=== PATIENT | female | born 1980 | race Caucasian/White ===

== ENCOUNTER → 2019-12-08 16:15 | Outpatient (BNVA) | payer OTHER, SELFPAY | PROVIDERS: Family Provider Family Medicine; PCP Family Medicine; Visit Provider Obstetrics & Gynecology | DX: N92.0 Excessive and frequent menstruation with regular cycle (principal) | CPT/HCPCS: 84443; 85027 ==

== ENCOUNTER → 2019-12-24 09:29 | Outpatient (BNVA) | payer OTHER, SELFPAY | PROVIDERS: Family Provider Family Medicine; PCP Family Medicine; Referring Provider Obstetrics & Gynecology; Visit Provider Obstetrics & Gynecology | DX: N92.0 Excessive and frequent menstruation with regular cycle (principal) | CPT/HCPCS: 76830; 76856 ==

== ENCOUNTER → 2020-01-19 10:57 | Outpatient (BNVA) | payer OTHER, SELFPAY | PROVIDERS: Family Provider Family Medicine; PCP Family Medicine; Referring Provider Nurse Practitioner; Visit Provider Podiatrist Foot & Ankle Surgery | DX: M21.41 Flat foot [pes planus] (acquired), right foot (principal); M21.42 Flat foot [pes planus] (acquired), left foot; M77.32 Calcaneal spur, left foot; M77.31 Calcaneal spur, right foot; M20.12 Hallux valgus (acquired), left foot; M20.11 Hallux valgus (acquired), right foot | CPT/HCPCS: 73630 ==

== ENCOUNTER → 2020-01-29 10:35 | Outpatient (BNVA) | payer OTHER, SELFPAY | PROVIDERS: Family Provider Family Medicine; PCP Family Medicine; Visit Provider Obstetrics & Gynecology | DX: N92.0 Excessive and frequent menstruation with regular cycle (principal) | CPT/HCPCS: 88305 ==

== ENCOUNTER 2021-04-20 13:07 | Outpatient (CLI) | payer OTHER, SELFPAY ==
--- NOTE | 2021-04-20 13:27 | MM_ITS ---
WS: [id number] BILATERAL DIGITAL SCREENING MAMMOGRAPHY WITH CAD CLINICAL INFORMATION: SCREENING HISTORY: Screening mammogram. No current complaints. COMPARISON: None. TECHNIQUE: Bilateral CC and MLO views. FINDINGS: Scattered fibroglandular densities bilaterally. Partially obscured ovoid focal asymmetric density lef t breast measuring 7 mm outer quadrant left breast middle to posterior depth. This may represent an i ntramammary lymph node but indeterminant. Recommend spot compression views and ultrasound for further evaluation. Right breast is unremarkable. MM/[place] [id number] IMPRESSION: BI-RADS: 0-Incomplete: Need additional imaging evaluation FOLLOW UP: Need Additional Imaging RECOMMEND DIAGNOSTIC MAMMOGRAPHY WITH SPOT COMPRESSION VIEWS AND ULTRASOUND LEF T BREAST.
== END 2021-04-20 13:08 | disposition home or self-care (01) ==
LOC: RADSHAW 13:10
PROVIDERS: PCP Electrodiagnostic Medicine; Visit Provider Electrodiagnostic Medicine
DX: Z12.31 Encounter for screening mammogram for malignant neoplasm of breast (principal)
CPT/HCPCS: 77067

== ENCOUNTER 2021-05-02 12:38 | Outpatient (CLI) | payer OTHER, SELFPAY ==
--- NOTE | 2021-05-02 13:16 | US_ITS ---
WS: [id number] LEFT DIGITAL MAMMOGRAPHY WITH CAD CLINICAL INFORMATION: LT BREAST MASS TECHNIQUE: 5 views of the left breast were obtained. FINDINGS: Scattered fibroglandular densities of the left breast. Partially obscured ovoid focal asymmetric density left breast measuring 7 mm outer quadrant left [address] middle to posterior depth is less conspicuous today. This most likely represents an incidental int ramammary lymph node. Ultrasound is pending. ULTRASOUND BREAST LEFT TECHNIQUE: Ultrasound left breast focused area of concern. CLINICAL INFORMATION: LT BREAST MASS COMPARISON: None. FINDINGS: Ultrasound left breast 12-5 position. No cystic or solid lesions. Normal underlying breast parenchyma. No suspicious findings. Recommend re turn to annual screening mammography. US/US breast LT limited* [id number] IMPRESSION: BI-RADS: 2-Benign FOLLOW UP: 1 Year Follow-up Recommend return to annual screening mammography.
== END 2021-05-02 12:39 | disposition home or self-care (01) ==
LOC: RADSHAW 12:40
PROVIDERS: PCP Electrodiagnostic Medicine; Visit Provider Electrodiagnostic Medicine
DX: N63.20 Unspecified lump in the left breast, unspecified quadrant (principal)
CPT/HCPCS: 76642; 77065

== ENCOUNTER → 2022-02-24 13:47 | Outpatient (BNVA) | payer OTHER, SELFPAY | PROVIDERS: PCP Electrodiagnostic Medicine; Visit Provider Nurse Practitioner Women's Health | DX: Z01.419 Encounter for gynecological examination (general) (routine) without abnormal findings (principal); N84.1 Polyp of cervix uteri; N93.9 Abnormal uterine and vaginal bleeding, unspecified; D25.9 Leiomyoma of uterus, unspecified | CPT/HCPCS: 87624; 88305 ==

== ENCOUNTER 2022-06-22 12:51 | Outpatient (CLI) | payer OTHER, SELFPAY ==
--- NOTE | 2022-06-22 13:01 | MM_ITS ---
WS: [id number] BILATERAL 3D TOMOSYNTHESIS DIGITAL SCREENING MAMMOGRAPHY WITH CAD CLINICAL INFORMATION: SCREENING HISTORY: Screening mammogram. No current complaints. COMPARISON: TECHNIQUE: Bilateral CC and MLO views. FINDINGS: Scattered fibroglandular densities bilaterally. No suspicious focal mass, asymmetry, calcifications, or architectural distortion. No evidence of malignancy. MM/[place] [id number] IMPRESSION: BI-RADS: 1-Negative FOLLOW UP: 1 Year Follow-up Recommend return to annual screening mammography.
== END 2022-06-22 12:52 | disposition home or self-care (01) ==
LOC: RAD 12:53
PROVIDERS: PCP Electrodiagnostic Medicine; Visit Provider Nurse Practitioner Women's Health
DX: Z12.31 Encounter for screening mammogram for malignant neoplasm of breast (principal)
CPT/HCPCS: 77063; 77067

== ENCOUNTER → 2022-11-27 10:30 | Outpatient (BNVA) | payer OTHER, SELFPAY | PROVIDERS: PCP Electrodiagnostic Medicine; Visit Provider Nurse Practitioner Women's Health | DX: N93.9 Abnormal uterine and vaginal bleeding, unspecified (principal) | CPT/HCPCS: 76830 ==

== ENCOUNTER → 2023-01-19 10:30 | Outpatient (BNVA) | payer OTHER, SELFPAY | PROVIDERS: PCP Electrodiagnostic Medicine; Visit Provider Obstetrics & Gynecology | DX: D25.9 Leiomyoma of uterus, unspecified (principal); N93.9 Abnormal uterine and vaginal bleeding, unspecified | CPT/HCPCS: 83001; 84443; 84702; 85025 ==

== ENCOUNTER 2023-02-21 07:26 | Day surgery (SDC) | payer OTHER, SELFPAY ==
[2023-02-19 11:32] VITALS: BMI 59.1
[2023-02-19 12:21] LABS: Add Urine Microscopic? NO; Charge for UA Resulting for Rev
[2023-02-19 12:24] LABS: Basophils % 0.6 %; Eosinophils # 0.1 10^3/uL (0.0-0.8); Eosinophils % 1.9 %; Hematocrit 40.6 % (37.0-47.0); Hemoglobin 12.9 g/dL (11.5-15.3); Lymphocytes % 28.5 %; Mean Corpuscular HGB Conc 31.8 g/dL (30.0-36.0); Mean Corpuscular Volume 85.1 fl (81-99); Mean Platelet Volume 10.6 fL (7.4-10.4); Monocytes # 0.4 10^3/uL (0.2-0.9); Monocytes % 5.9 %; Neutrophils # 4.38 10^3/uL (1.8-7.7); Neutrophils % 62.7 %; Nucleated Red Blood Cells % 0 %; Platelet Count 299 10^3/cmm (130-400); Red Blood Count 4.77 10^6/uL (4.1-5.3); Red Cell Distribution Width 15.5 % (12.1-15.1)
[2023-02-19 12:40] LABS: Alanine Aminotransferase 15 U/L (0-33); Albumin Level 3.7 g/dL (3.5-5.2); Alkaline Phosphatase 82 U/L (35-105); Anion Gap 11.8 (5-19); Aspartate Amino Transferase 16 U/L (0-32); Blood Urea Nitrogen 9 mg/dL (6-20); Calcium 8.3 mg/dL (8.5-10.5); Carbon Dioxide 25 mmol/L (22-29); Chloride 104 mmol/L (98-107); Globulin 3.1 g/dL (1.3-4.6); Glomerular Filtration Rate 174.2 mL/min (90-130); Glucose 108 mg/dL (65-115); Osmolality Calculated 283 mOsm/kg (285-295); Potassium 3.8 mmol/L (3.5-5.1); Sodium 137 mmol/L (136-145); Total Bilirubin 0.3 mg/dL (0.15-1.2); Total Protein 6.8 g/dL (6.6-8.7)
[2023-02-19 12:43] LABS: Bilirubin Urine Neg (Negative); Blood Urine Neg (Negative); Glucose Urine UA Norm (Normal); Ketones Urine Negative (Negative); Leukocyte Esterase Urine Negative (Negative); Nitrate Urine Negative (Negative); Protein Urine Neg (Negative); Specific Gravity, Urine 1.015 (1.005-1.030); Sulfosalicylic Acid Urine Negative (Negative); Urine Appearance Clear (CLEAR); Urine Color Yellow (Yellow); Urobilinogen Urine 1 mg/dL (Negative); pH Urine 8 (5-7)
--- NOTE | 2023-02-19 15:32 | P.ANESASSM_ITS ---
Pre-Anesthetic Assessment Height/Weight: Height 1.73 m Weight 176.447 kg Operation Date: 02/21/23 07:10 Proposed Procedures p Hysteroscopy, dilation and curettage with Myosure 48804,[id number],N93.9(Not Applicable) - Severiano Bhakta MD s Dilation And Curettage (D&C)(Not Applicable) - Severiano Bhakta MD Familial anesthetic complications: none Was Beta Neal taken within 24 hours: N/A Was Clonidine taken within 24 hours: N/A Social No alcohol and No tobacco Exam alert, oriented x 3, clear to auscultation bilaterally and regular rate & rhythm Airway Submandibular: within normal limits Cervical ROM: within normal limits Mallampati: Class II Dentition: full Metabolic Morbid Obesity Anesthetic Plan ASA status: 2 Anesthesia: General Medications/Allergies Home Medications Medication Instructions Recorded Confirmed Last Taken Type No Known Home Medications 02/24/22 02/19/23 Unknown History Allergies Allergy/AdvReac Type Severity Reaction Status Date / Time No Known Allergies Allergy Verified 02/19/23 09:07 [facility] Anesthesia Medical History Abnormal uterine bleeding due to leiomyoma of uterus Morbid obesity No pertinent past medical history neghx: htn,dm,thyroid,dvt/pe PCP: Dr. Olvera Plantar fasciitis of left foot Stress incontinence (female) (male) Surgical History No history of previous surgery Family History Father Hypercholesteremia Hypertension Grandmother Colon cancer Maternal---dx age 74 Denies family history of Ovarian cancer Diabetes Heart disease Breast cancer Uterine cancer Thyroid disease Stroke Female Reproductive History Date of last menstrual period: 02/05/23 Data Anesthesia 02/19/23 12:00 02/19/23 12:00 Short CBC 02/19/23 Range/Units 12:00 WBC 7.0 (4.0-10.0) 10^3/uL Hgb 12.9 (11.5-15.3) g/dL Hct 40.6 (37.0-47.0) % MCV 85.1 (81-99) fl Plt Count 299 (130-400) 10^3/cmm Neut % (Auto) 62.7 % Neut # (Auto) 4.38 (1.8-7.7) 10^3/uL BMP 02/19/23 12:00 Sodium 137 Potassium 3.8 Chloride 104 Carbon Dioxide 25 BUN 9 Creatinine 0.4 L Glucose 108 Calcium 8.3 L Liver Function 02/19/23 Range/Units 12:00 Total Bilirubin 0.3 (0.15-1.2) mg/dL AST 16 (0-32) U/L ALT 15 (0-33) U/L Alkaline Phosphatase 82 (35-105) U/L Albumin 3.7 (3.5-5.2) g/dL Urine 02/19/23 Range/Units 12:10 Urine Color Yellow (Yellow) Urine Appearance Clear (CLEAR) Urine pH 8 H (5-7) Ur Specific Needles 1.015 (1.005-1.030) Urine Protein Neg (Negative) Urine Glucose (UA) Norm (Normal) Urine Ketones Negative (Negative) Urine Nitrate Negative (Negative) Urine Bilirubin Neg (Negative) Ur Leukocyte Esterase Negative (Negative) Blood Bank 02/19/23 12:00 Blood Type O Positive Rho(D) Type Positive Antibody Screen Negative Cardiac Studies: No Data to Display
[2023-02-19 21:00] LABS: OR HCG Qualitative Urine Negative (Negative)
[2023-02-21] VITALS (10 sets, daily range): BP systolic 91–151; BP diastolic 69–114; PULSE 83–102; RESP 16–18; TEMP 36.2–36.7; O2SAT 95–100
[2023-02-21] MEDS: sodium chloride 0.9% 1,000 ML 30 ML IV (07:51)
--- NOTE | 2023-02-21 08:41 | P.ANESUD_ITS ---
Pre-Anesthetic Update Pre-Anesthetic Assessment: Date of Surgery/Procedure: 02/21/23 Preop [place] gnosis: Abnormal uterine bleeding, cervical polyp Proposed Procedure: Operation Date: 02/21/23 09:05 Proposed Procedures p Hysteroscopy, dilation and curettage with Myosure 79449,70365,45141,N93.9(Not Applicable) - Severiano Bhakta MD s Dilation And Curettage (D&C)(Not Applicable) - Severiano Bhakta MD Any changes to Pre-Anesthetic Assessment?: No Last Intake: Intake Last Liquid Date 02/20/23 Last Liquid Time 19:30 Last Solid Date 02/20/23 Last Solid Time 19:30 Labs Last 48hrs: Short CBC 02/19/23 Range/Units 12:00 WBC 7.0 (4.0-10.0) 10^3/ uL Hgb 12.9 (11.5-15.3) g/dL Hct 40.6 (37.0-47.0) % MCV 85.1 (81-99) fl Plt Count 299 (130-400) 10^3/c mm Neut % (Auto) 62.7 % Neut # (Auto) 4.38 (1.8-7.7) 10^3/u L BMP 02/19/23 12:00 Sodium 137 Potassium 3.8 Chloride 104 Carbon Dioxide 25 BUN 9 Creatinine 0.4 L Glucose 108 Calcium 8.3 L Liver Function 02/19/23 Range/Units 12:00 Total Bilirubin 0.3 (0.15-1.2) mg/dL AST 16 (0-32) U/L ALT 15 (0-33) U/L Alkaline Phosphata se 82 (35-105) U/L Albumin 3.7 (3.5-5.2) g/dL Urine 02/19/23 Range/Units 12:10 Urine Color Yellow (Yellow) Urine Appearance Clear (CLEAR) Urine pH 8 H (5-7) Ur Specific Gravit y 1.015 (1.005-1.030) Urine Protein Neg (Negative) Urine Glucose (UA) Norm (Normal) Urine Ketones Negative (Negative) Urine Nitrate Negative (Negative) Urine Bilirubin Neg (Negative) Ur Leukocyte Chloe ase Negative (Negative) Blood Bank 02/19/23 12:00 Blood Type O Positive Rho(D) Type Positive Antibody Screen Negative Vitals: Temperature 97.1 F L 02/21/23 07:37 Temperature Source Temporal Artery S can 02/21/23 07:37 Pulse Rate 99 02/21/23 07:37 Respiratory Rate 18 02/21/23 07:37 Blood Pressure 151/114 02/21/23 07:37 Blood Pressure Marizol n 126 02/21/23 07:37 Pulse Oximetry 100 02/21/23 07:37 Oxygen Delivery Me thod Room Air 02/21/23 07:46 Exam: Pre-Anes Outpt Exam: alert, oriented x 3, clear to auscultation bilaterally and regular rate & rhythm Cardiac Studies: No Data to Display
[2023-02-21] MEDS: scopolamine 1.5 Patch 1 PATCH TRANSDERMA (08:44)
[2023-02-21] MEDS: enoxaparin 30 mg/0.3 mL Syringe SUBCUT (08:44)
--- NOTE | 2023-02-21 09:43 | W.PM.OPSUD ---
Surgery/Procedure H&P Update DATE OF PROCEDURE: February 21, 2023 DATE H&P PERFORMED: 02/19/23 H&P UPDATE INFORMATION: I have reviewed H&P completed within last 30 days, I have examined patient prior to procedure and No changes to prior documentation PREOP DIAGNOSIS: Abnormal uterine bleeding, cervical polyp PLANNED PROCEDURE: Operation Date: 02/21/23 09:05 Proposed Procedures p Hysteroscopy, dilation and curettage with Myosure 95748,[id number],N93.9(Not Applicable) - Severiano Bhakta MD s Dilation And Curettage (D&C)(Not Applicable) - Severiano Bhakta MD
[2023-02-21] MEDS: ceFAZolin 3,000 MG in sodium chloride 0.9% (100 ml) 100 ML 200 MG IV (10:13)
[2023-02-21] MEDS: lidocaine-epi 2% 20 mL INJ 10 ML INJECTION (11:04)
--- NOTE | 2023-02-21 11:16 | P.OP_ITS ---
Operative Report Date of procedure: February 21, 2023 Pre-op diagnosis: Preop Diagnosis Abnormal uterine bleeding, cervical polyp Post-op diagnosis: Same as above Post-op findings: Multiple polyps in uterus Specimens removed/disposition: Endometrial curettings Pathology: Endometrial polyps Surgeon: Severiano Bhakta MD Estimated blood loss (mL): 10 IV fluids (mL): 800 Procedure: After informed consent, the risks included but were not limited to bleeding, infection, injury to internal organs. The patient was counseled on a possible laparotomy and on the potential need for hysterectomy. The patient expressed understanding of the risks involved, all questions were answered, and the patient consented to the procedure. The patient was taken to the operating room where general anesthesia was administered. She was placed in the dorsal litho jenn position and prepped and draped in sterile fashion. A time out procedure was performed. The patient was examined under anesthesia and found to have a normal uterus with normal adnexa. A sterile weight speculum was placed in the vagina. The uterus was then gently sounded to 8 cm, and the cervix was dilated. The 0 degrees MyoSure hysteroscope was advanced gently to the uterine fundus while vi sualizing the monitor. Survey of the uterine cavity showed: Pedicle of the pedunculated myoma on the posterior lateral wall, the fundus shows normal proliferative endometrium; left ostium was visualized, and lateral wall with proliferative endometrium; right ostium visualized, and lateral wall with proliferative endometrium; anterior and posterior lawson are with proliferative endometrium; endocervical canal is normal. The MyoSure device was advanced and the direct visualization the myoma stalk, polyps was morcellated without complication. At the end of morcellation the fluid deficit was 420 mL and was estimated at approximately 200 mL were on the floor. There was minimal bleeding noted and the tenaculum removed with goad hemostasis noted. The patient tolerated the procedure well. The patient was taken to the recovery area in stable condition.
--- NOTE | 2023-02-21 12:38 | ANE.PACU2 ---
Inpatient post-anesthesia follow up: Airway intact: Yes Vital signs: Temperature 98.1 F Pulse Rate 87 Respiratory Rate 18 Blood Pressure 145/83 Pulse Oximetry 95 Oxygen Delivery Me thod Room Air Oxygen Flow Rate 6 Fraction of Inspir ed Oxygen Hydration adequate: Yes Nausea and vomiting: No Pain level: 3 Mental status: Baseline
== END 2023-02-21 12:33 | disposition home or self-care (01) ==
PROVIDERS: PCP Electrodiagnostic Medicine; Visit Provider Obstetrics & Gynecology
PROC: 0UDB8ZZ Extraction of Endometrium, Via Natural or Artificial Opening Endoscopic (ICD-10-PCS; CPT 58558; principal; 2023-02-21 08:55)
PROC: (CPT 58120; 2023-02-21 08:55)
DX: N93.9 Abnormal uterine and vaginal bleeding, unspecified (principal); N84.1 Polyp of cervix uteri; E66.01 Morbid (severe) obesity due to excess calories; Z68.43 Body mass index [BMI] 50.0-59.9, adult
CPT/HCPCS: 58558; 36415; 80053; 81003; 84703; 85025; 86850; 86900; 88305; A4216; J0330; J0690; J1100; J1650; J1885; J2405; J2704; J3010; J7030

== ENCOUNTER 2023-06-28 15:13 | Outpatient (CLI) | payer OTHER, SELFPAY ==
--- NOTE | 2023-06-28 15:20 | MM_ITS ---
WS: [id number] BILATERAL SCREENING DIGITAL TOMOSYNTHESIS MAMMOGRAM WITH CAD HISTORY: Z12.39 - Encounter for other screening for malignant neop... COMPARISON: 06/22/2022, 04/20/2021 Bilateral CC and MLO views with tomosynthesis and synthetic mammography submitted. Computer aided det ection analyzed. Breast composition: There are scattered areas of fibroglandular density. No suspicious masses, microc alcifications or architectural distortion. Previously described nodule in the posterior LEFT breast i s reidentified and unchanged since at least 2020. IMPRESSION: MM/[place] [id number] BI-RADS: 2-Benign FOLLOW UP: 1 Year Follow-up
== END 2023-06-28 15:14 | disposition home or self-care (01) ==
LOC: RAD 15:17 → MOBLMAM 15:19
PROVIDERS: PCP Electrodiagnostic Medicine; Visit Provider Electrodiagnostic Medicine
DX: Z12.31 Encounter for screening mammogram for malignant neoplasm of breast (principal)
CPT/HCPCS: 77063; 77067

== ENCOUNTER 2024-01-22 13:00 | Inpatient (IN) | payer OTHER, SELFPAY ==
[2024-01-21 08:14] LABS: OR HCG Qualitative Urine Negative (Negative)
--- NOTE | 2024-01-21 08:26 | ANES.PREANE2 ---
Pre-Anesthetic Assessment Height/Weight: Height 1.73 m Operation Date: 01/22/24 08:35 Proposed Procedures p Total vaginal hysterectomy 30263, Anterior colporrhaphy 04430, Midurethral sling 15743 N93.9, N81.10,N39.46(Not Applicable) - Severiano Bhakta MD s Colporrhaphy Anterior(Not Applicable) - Severiano Bhakta MD s Sling Single Incision Midurethral Sling(Not Applicable) - Severiano Bhakta MD Familial anesthetic complications: NOne Social No alcohol and No tobacco Exam alert, oriented x 3, clear to auscultation bilaterally and regular rate & rhythm Airway Mallampati: Class IV Dentition: full Metabolic Morbid Obesity Anesthetic Plan ASA status: 2 Anesthesia: General Risk of > 500 ml blood loss (7ml/kg in children): No Medications/Allergies Home Medications Medication Instructions Recorded Confirmed Last Taken Type oxybutynin chloride 5 mg 5 mg PO DAILY #30 tabs 10/05/23 01/21/24 12/31/23 Rx tablet,extended release 24 hr norgestimate 0.25 mg-ethinyl 1 tab PO DAILY #84 tabs 11/29/23 01/21/24 01/21/24 Rx estradiol 35 mcg tablet (Sprintec (28)) cetirizine 10 mg capsule (Zyrtec) 10 mg PO DAILY 01/21/24 01/21/24 01/21/24 History sennosides 8.6 mg tablet (senna) 8.6 mg PO DAILY 01/21/24 01/21/24 01/21/24 History Allergies Allergy/AdvReac Type Severity Reaction Status Date / Time No Known Allergies Allergy Verified 10/05/23 08:19 [facility] Anesthesia Medical History Cervical polyp Abnormal uterine bleeding due to leiomyoma of uterus No pertinent past medical history neghx: htn,dm,thyroid,dvt/pe PCP: Dr. Olvera Plantar fasciitis of left foot Morbid obesity Stress incontinence (female) (male) Surgical History Status post hysteroscopic polypectomy (~02/21/23) Hysteroscopy, D&C via MyoSure- performed at [facility] by Yony for AUB secondary to uterine polyps. Family History Father Hypercholesteremia Hypertension Grandmother Colon cancer Maternal---dx age 74 Denies family history of Ovarian cancer Diabetes Heart disease Breast cancer Uterine cancer Thyroid disease Stroke Social History Substance/Drug Use: never Female Reproductive History Date of last menstrual period: 12/24/23 Data Anesthesia Cardiac Studies: No Data to Display
--- NOTE | 2024-01-21 08:31 | ANES.PREANE2 ---
Pre-Anesthetic Assessment Height/Weight: Height 1.73 m Operation Date: 01/22/24 08:35 Proposed Procedures p Total vaginal hysterectomy 94937, Anterior colporrhaphy 99731, Midurethral sling 12663 N93.9, N81.10,N39.46(Not Applicable) - Severiano Bhakta MD s Colporrhaphy Anterior(Not Applicable) - Severiano Bhakta MD s Sling Single Incision Midurethral Sling(Not Applicable) - Severiano Bhakta MD Familial anesthetic complications: None Was Beta Neal taken within 24 hours: N/A Was Clonidine taken within 24 hours: N/A Last intake: > 8hrs Social Alcohol and Tobacco (encouraged smoking cessation) Exam alert, oriented x 3, clear to auscultation bilaterally and regular rate & rhythm Airway Mallampati: Class III Dentition: other (missing molar) Pulmonary allergies Anesthetic Plan ASA status: 1 Anesthesia: General Risk of > 500 ml blood loss (7ml/kg in children): No Other Pertinent Information Covid + on 01/03 - patient states her covid infection wasn't severe and she is back to her baseline health with no remaining symptoms Medications/Allergies Home Medications Medication Instructions Recorded Confirmed Last Taken Type oxybutynin chloride 5 mg 5 mg PO DAILY #30 tabs 10/05/23 01/21/24 12/31/23 Rx tablet,extended release 24 hr norgestimate 0.25 mg-ethinyl 1 tab PO DAILY #84 tabs 11/29/23 01/21/24 01/21/24 Rx estradiol 35 mcg tablet (Sprintec (28)) cetirizine 10 mg capsule (Zyrtec) 10 mg PO DAILY 01/21/24 01/21/24 01/21/24 History sennosides 8.6 mg tablet (senna) 8.6 mg PO DAILY 01/21/24 01/21/24 01/21/24 History Allergies Allergy/AdvReac Type Severity Reaction Status Date / Time No Known Allergies Allergy Verified 10/05/23 08:19 [facility] Anesthesia Medical History Cervical polyp Abnormal uterine bleeding due to leiomyoma of uterus No pertinent past medical history neghx: htn,dm,thyroid,dvt/pe PCP: Dr. Olvera Plantar fasciitis of left foot Morbid obesity Stress incontinence (female) (male) Surgical History Status post hysteroscopic polypectomy (~02/21/23) Hysteroscopy, D&C via MyoSure- performed at [facility] by Yony for AUB secondary to uterine polyps. Family History Father Hypercholesteremia Hypertension Grandmother Colon cancer Maternal---dx age 74 Denies family history of Ovarian cancer Diabetes Heart disease Breast cancer Uterine cancer Thyroid disease Stroke Social History Substance/Drug Use: never Female Reproductive History Date of last menstrual period: 12/24/23 Data Anesthesia Cardiac Studies: No Data to Display
[2024-01-21 08:41] LABS: Add Urine Microscopic? YES; Bilirubin Urine Neg (Negative); Blood Urine Neg (Negative); Glucose Urine UA Norm (Normal); Ketones Urine Negative (Negative); Leukocyte Esterase Urine 2+ (Negative); Nitrate Urine Negative (Negative); Protein Urine Neg (Negative); Urine Appearance Clear (CLEAR); Urine Color Yellow (Yellow); Urobilinogen Urine Norm (Negative); pH Urine 5 (5-7)
[2024-01-21 08:42] LABS: Add Urine Culture? No; Bacteria Urine 1+ /hpf; Squamous Epithelial Cell Urine 15-25 /hpf (0-5); WBC Urine 15-25 /hpf (0-5)
[2024-01-21 09:19] LABS: Basophils % 0.4 %; Eosinophils # 0.2 10^3/uL (0.0-0.8); Eosinophils % 1.8 %; Lymphocytes # 2.2 10^3/uL (0.8-4.8); Lymphocytes % 25.4 %; Mean Corpuscular Hemoglobin 26.2 pg (27-33); Mean Corpuscular Volume 81.8 fl (85-98); Mean Platelet Volume 10.7 fL (7.4-10.4); Monocytes # 0.5 10^3/uL (0.2-0.9); Monocytes % 5.9 %; Neutrophils # 5.66 10^3/uL (1.8-7.7); Neutrophils % 66.3 %; Nucleated Red Blood Cells % 0 %; Platelet Count 305 10^3/cmm (157-399); Red Blood Count 4.89 10^6/uL (3.85-5.65); Red Cell Distribution Width 16.7 % (12.1-15.1); White Blood Count 8.53 10^3/uL (3.29-11.43)
[2024-01-21 09:46] LABS: Alanine Aminotransferase 11 U/L (0-33); Albumin Level 3.6 g/dL (3.5-5.2); Alkaline Phosphatase 75 U/L (35-105); Anion Gap 14.8 (5-19); Aspartate Amino Transferase 12 U/L (0-32); Blood Urea Nitrogen 11 mg/dL (6-20); Calcium 8.6 mg/dL (8.5-10.5); Carbon Dioxide 23 mmol/L (22-29); Chloride 102 mmol/L (98-107); Glucose 86 mg/dL (65-115); Osmolality Calculated 281 mOsm/kg (285-295); Potassium 3.8 mmol/L (3.5-5.1); Sodium 136 mmol/L (136-145); Total Bilirubin 0.2 mg/dL (0.15-1.2); Total Protein 6.6 g/dL (6.6-8.7)
[2024-01-22] VITALS (36 sets, daily range): BP systolic 109–162; BP diastolic 67–106; PULSE 75–98; RESP 16–20; TEMP 36.2–36.8; O2SAT 90–98; BMI 58.5
[2024-01-22] MEDS: scopolamine 1.5 Patch 1 PATCH TRANSDERMA (06:33)
[2024-01-22] MEDS: sodium chloride 0.9% 1,000 ML 30 ML IV (06:34)
[2024-01-22] MEDS: sodium chloride 0.9% 500 ML IV (06:34)
--- NOTE | 2024-01-22 06:42 | P.ANESUD_ITS ---
Pre-Anesthetic Update Pre-Anesthetic Assessment: Date of Surgery/Procedure: 01/22/24 Preop [place] gnosis: Menorrhagia, mixed urinary incontinence, cystocele Proposed Procedure: Operation Date: 01/22/24 07:00 Proposed Procedures p Total vaginal hysterectomy 52963, Anterior colporrhaphy 69200, Midurethral sling 91988 N93.9, N81.10,N39.46(Not Applicable) - Severiano Bhakta MD s Colporrhaphy Anterior(Not Applicable) - Severiano Bhakta MD s Sling Single Incision Midurethral Sling(Not Applicable) - Severiano Bhakta MD Any changes to Pre-Anesthetic Assessment?: No Last Intake: Intake Last Liquid Date 01/21/24 Last Liquid Time 21:30 Last Solid Date 01/21/24 Last Solid Time 21:30 Labs Last 48hrs: Short CBC 01/21/24 Range/Units 08:00 WBC 8.53 (3.29-11.43) 10^ 3/uL Hgb 12.80 (11.27-16.99) g/ dL Hct 40.0 (36-47) % MCV 81.8 L (85-98) fl Plt Count 305 (157-399) 10^3/c mm Neut % (Auto) 66.3 % Neut # (Auto) 5.66 (1.8-7.7) 10^3/u L BMP 01/21/24 08:00 Sodium 136 Potassium 3.8 Chloride 102 Carbon Dioxide 23 BUN 11 Creatinine 0.5 Glucose 86 Calcium 8.6 Liver Function 01/21/24 Range/Units 08:00 Total Bilirubin 0.2 (0.15-1.2) mg/dL AST 12 (0-32) U/L ALT 11 (0-33) U/L Alkaline Phosphata se 75 (35-105) U/L Albumin 3.6 (3.5-5.2) g/dL Urine 01/21/24 Range/Units 07:45 Urine Color Yellow (Yellow) Urine Appearance Clear (CLEAR) Urine pH 5 (5-7) Ur Specific Gravit y 1.020 (1.005-1.030) Urine Protein Neg (Negative) Urine Glucose (UA) Norm (Normal) Urine Ketones Negative (Negative) Urine Nitrate Negative (Negative) Urine Bilirubin Neg (Negative) Ur Leukocyte Chloe ase 2+ H (Negative) Urine RBC None (0-2) /hpf Urine WBC 15-25 H (0-5) /hpf Blood Bank 01/21/24 08:00 Blood Type O Positive Rho(D) Type Rh positive Antibody Screen Negative Vitals: Temperature 97.1 F L 01/22/24 06:34 Temperature Source Temporal Artery S can 01/22/24 06:34 Pulse Rate 86 01/22/24 06:34 Pulse Rhythm Regular 01/22/24 06:04 Pulse Strength 3+ Normal 01/22/24 06:04 Respiratory Rate 17 01/22/24 06:34 Blood Pressure 157/106 01/22/24 06:34 Blood Pressure Marizol n 123 01/22/24 06:34 Pulse Oximetry 98 01/22/24 06:34 Oxygen Delivery Me thod Room Air 01/22/24 06:34 Exam: Pre-Anes Outpt Exam: alert, oriented x 3, clear to auscultation bilaterally and regular rate & rhythm Cardiac Studies: No Data to Display
--- NOTE | 2024-01-22 07:02 | W.PM.OPSUD ---
Surgery/Procedure H&P Update DATE OF PROCEDURE: January 22, 2024 DATE H&P PERFORMED: 01/11/24 H&P UPDATE INFORMATION: I have reviewed H&P completed within last 30 days, I have examined patient prior to procedure and No changes to prior documentation PREOP DIAGNOSIS: Menorrhagia, mixed urinary incontinence, cystocele PLANNED PROCEDURE: Operation Date: 01/22/24 07:00 Proposed Procedures p Total vaginal hysterectomy 04272, Anterior colporrhaphy 93781, Midurethral sling 09416 N93.9, N81.10,N39.46(Not Applicable) - Severiano Bhakta MD s Colporrhaphy Anterior(Not Applicable) - Severiano Bhakta MD s Sling Single Incision Midurethral Sling(Not Applicable) - Severiano Bhakta MD
[2024-01-22] MEDS: ceFAZolin 3,000 MG in sodium chloride 0.9% (100 ml) 100 ML 200 MG IV (07:32)
[2024-01-22] MEDS: lidocaine-epi 2% PF 1:200,000 20 mL SDV INJECTION (08:37)
[2024-01-22] MEDS: BUPivacaine 0.5% INJ 30 mL INJECTION (10:36)
[2024-01-22] MEDS: BUPivacaine liposome 13.3 mg/mL SDV 10 mL 266 MG INJECTION (10:37)
--- NOTE | 2024-01-22 11:06 | PC.NURSE ---
Updated patient's , Angel, that procedure had to change to open hysterectomy and patient's condition. Patient doing well. No further questions asked from family.
[2024-01-22] MEDS: ceFAZolin 3,000 MG in sodium chloride 0.9% (plus) 100 ML 200 MG IV (12:02)
--- NOTE | 2024-01-22 12:36 | PM.OP ---
Operative Report Date of procedure: January 22, 2024 Procedure done: Vaginal hysterectomy converted to total abdominal hysterectomy Surgeon: Severiano Bhakta MD Estimated blood loss (mL): 600 IV fluids (mL): 1,200 Urine output (mL): 600 Complications: Bleeding Procedure: After informed consent and risks, benefits, indications and alternatives reviewed with the patient was taken to the operating room. The patient was placed in dorsal lithotomy position prepped, and draped in the usual sterile fashion. The pre-procedure timeout verifying the correct patient, procedure, site and side, could not requirements was performed and acknowledge by the OR team. A Omer catheter was placed. A Bookwalter vaginal retractor was placed into the vagina in usual manner visualize the cervix. Cervix was grasped with a single tooth tenaculum and circumferentially infiltrated with [1% Xylocaine with epinephrine]. Then cervix was circumferentially incised with bovie and the bladder was dissected off the pubovesical cervical fascia anteriorly with a sponge stick and Metzenbaum scissors. The anterior peritoneal reflection was identified and the anterior cul-de-sac was entered sharply with Metzenbaum scissors. The same procedure was performed posteriorly and a posterior colpotomy was made through the posterior cul-de-sac space without difficulty and the posterior blade of the Bookwalter vaginal retractor was advanced posteriorly into the cul-de-sac. At this time, the left and right uterosacral ligaments were isolated and ligated with 0 Vicryl. The [LigaSure, Voyant] device was placed over the uterosacral ligaments on either side and was then used in a serial fashion up through the cardinal ligaments bilaterally cross-clamped, cut, and sealed with the [LigaSure] device. Finally, the uterine arteries were cross-clamped, cut, sealed and ligated with the [LigaSure] device. Hemostasis was assured. The broad ligaments were then serially clamped, sealed and cut with the [Voyant] device on both sides up to midway to the uterus. But due to body habitus and instruments available it was difficult to proceed in a safely manner. Excellent hemostasis was visualized. The decision was made to proceed abdominally to finish the procedure. Subsequently, a Pfannenstiel incision was made and the incision was taken down to the fascia. The fascia was opened up sharply. The fascia was extended to the length of the incision using the Andrade scissors. At this time, the rectus muscles were dissected from the fascia superiorly and inferiorly to the symphysis pubis. The midline rectus muscles were opened sharply and extended superiorly and inferiorly. The peritoneum was visualized, grasped, opened sharply, and extended superiorly and inferiorly towards the bladder. The abdominal contents were packed superiorly away from the operative site using the lap packs. At this time, the pelvic organs were noted. The inferior and superior blades were placed in place on the Michael self-retaining retractor. Bowel was packed away from the operative site. The fundus of the uterus was then grasped with a triple-tooth tenaculum and retracted out of the pelvic cavity into the abdominal site. At this point, Terri clamps were placed in both right and left adnexal regions. Subsequently, using the LigaSure cautery unit, the round ligaments were grasped, cauterized, and dissected. The bladder flap was then formed and the bladder flap was pushed away down anteriorly over the lower uterine segment, pushed away from the operative site on both the right and left sides. Subsequently, the posterior leaf of the broad ligament was opened sharply and the LigaSure instrument was then placed below the level of the ovary in both the right and left side to the point where the magalie ligament have been disected vaginally. The uterus was then passed over to sent to pathology for pathologic evaluation. The bladder was visualized and no bleeding was noted. Seprafilm was then placed over the vaginal cuff. The Michael self-retaining retractor was removed as well as the anterior and inferior blades. The lap packs were removed, and at this time, general closure of the abdomen was carried out. The peritoneum was closed with a 2-0 Vicryl suture and continuous running suture. The fascia was closed using a #1 Vicryl suture from each corner to the midline. Subcutaneous tissue was cauterized. No bleeding was noted. The subcutaneous tissue was then reapproximated using plain sutures and interrupted sutures, and the skin was closed using Insorb absorbable subcuticular violet. The proceed to cclose the vaginal cuff vaginally to follow with anterior colporrhaphy and midurethral sling. The peritoneum was then closed in a pursestring fashion with 0 Vicryl suture. The vaginal cuff angles were closed with [id number] #0 Vicryl suture on both sides and transfixed with the ipsilateral cardinal and uterosacral ligaments. The remainder of the vaginal cuff was closed with #0 Vicryl in a running locked fashion. then proceeded to performed the midurethral sling. The anterior vaginal mucosa beneath the midurethra was infiltrated with 0.5% Marcaine with epinephrine. A vertical midline incision was made beneath the midurethra, nearly 1.5 cm length. Careful submucosal dissection was performed bilaterally up to the interior portion of the inferior pubic ramus. The insertion of adductor longus tendon on the patient?s pubic ramus was identified as reference land rose mary. Palpated the notch along the internal edge of ischiopubic ramus where the adductor longus tendon and the inferior pubic ramus meet. The Altis single incision sling (SIS) was selected. Then the needle of the SIS was inserted aiming at the location of this notch. But due to the patietn habitus the needle could not be placed at the right place after two attempts and the procedure could not be performed. I then closed the incision in a running interlocking fashion with 2-0 Vicryl and postpone the anterior colporrhaphy and the midurethral slingat this point after the patient have had an estimated blood loose of 600 ml. A second dose of antibiotics was given at the 3 hours time of surgery. A vaginal packing with Premarin cream was placed and the patient was taken out of dorsal lithotomy position and awakened from the general anesthesia. The patient tolerated the procedure well and was taken to the PACU recovery room in a stable condition. Sponge, lap, needle and instruments counts were correct x3.
--- NOTE | 2024-01-22 13:20 | ANE.PACU2 ---
Inpatient post-anesthesia follow up: Airway intact: Yes Vital signs: Temperature 98.2 F Pulse Rate 90 Respiratory Rate 18 Blood Pressure 162/75 Pulse Oximetry 95 Oxygen Delivery Me thod Room Air Oxygen Flow Rate 6 Fraction of Inspir ed Oxygen Hydration adequate: Yes Nausea and vomiting: No Pain level: 1 Mental status: Baseline
[2024-01-22] MEDS: ketorolac 30 mg/mL INJ IVP ×2 (15:11→22:26)
[2024-01-22] MEDS: dextrose 5%-lactated ringers 1,000 ML 125 ML IV (17:51)
[2024-01-22] MEDS: docusate sodium 100 mg Capsule PO (17:53)
--- NOTE | 2024-01-22 22:33 | PC.NURSE ---
Got pt up to chair at approx 2030. Pt tolerated well. Pt got up and ambulated around OB unit 1x around 2200. Pt tolerated well without difficulty.
[2024-01-23] VITALS (13 sets, daily range): BP systolic 120–186; BP diastolic 65–86; PULSE 73–89; RESP 17; TEMP 36.1–36.6; O2SAT 95–97
[2024-01-23] MEDS: ketorolac 30 mg/mL INJ IVP (04:17)
--- NOTE | 2024-01-23 05:36 | PC.NURSE ---
This RN removed vaginal packing at approximately 0500. Pt tolerated well without difficulty.
[2024-01-23 05:38] LABS: Hematocrit 31.1 % (36-47); Mean Corpuscular HGB Conc 32.8 g/dL (30-55); Mean Corpuscular Hemoglobin 26.2 pg (27-33); Mean Corpuscular Volume 79.7 fl (85-98); Mean Platelet Volume 10.1 fL (7.4-10.4); Platelet Count 292 10^3/cmm (157-399); Red Cell Distribution Width 16.9 % (12.1-15.1); White Blood Count 11.69 10^3/uL (3.29-11.43)
--- NOTE | 2024-01-23 08:08 | P.PN_ITS ---
Subjective 2 Subjective: Mrs. Jackson 43-year-old female status post total abdominal hysterectomy postoperative day 1. Referred pain well-controlled. Vitals/I&O/Wt Last Vital Signs Temp 98.1 F 01/22/24 22:21 Pulse 84 01/23/24 04:59 Resp 18 01/22/24 13:20 BP 143/69 01/23/24 04:59 Pulse Ox 96 01/22/24 15:14 O2 Del Method Room Air 01/22/24 14:00 O2 Flow Rate 6 01/22/24 12:50 01/22/24 01/23/24 01/23/24 22:59 06:59 14:59 Output Total 350 / 2150 650 / 2800 Balance -350 / -350 -650 / -1000 Weight last 48 hrs Weight 174.633 kg Physical Exam 2 Narrative: GA: Alert and oriented ?3. HEENT: WNL. Heart: Regular rate and rhythm. Lungs: Clear to auscultation bilaterally. Abdomen: Bowel sounds present, nontender, minimal tenderness, incision clean and dry, no redness, pain or edema. FISHER DIVER NET: No bleeding. Extremities: No edema, no cyanosis, no calves pain. Urinary Catheter Management: Omer: Cath Placed During This Visit: yes, but has since been removed by the nurse Reason for Continuing Indwelling Catheter: Decision to DC Catheter Urinary Catheter Date of Insertion: 01/22/24 Urinary Catheter Time of Insertion: 08:11 Date Urinary Catheter Removed: 01/23/24 Time Urinary Catheter Discontinued: 05:05 Data 01/23/24 05:20 01/21/24 08:00 A&P Assessment and plan (1) Status post total abdominal hysterectomy: Mrs. Jackson 43-year-old female status post total abdominal hysterectomy postoperative day 1. She is afebrile and hemodynamically stable. Tolerating diet well. Ambulating without difficulty. Plan Continue postop observation. Attestations 2 Medical Necessity Statement*: In my professional opinion poor admitting diagnosis Coding Level of Care Code Acute Code for Chg Fwd Diagnoses Status post total abdominal hysterectomy Z90.710
[2024-01-23] MEDS: oxybutynin chloride XL 5 MG TABLET PO (09:31)
[2024-01-23] MEDS: cetirizine 10 mg Tablet PO (09:31)
[2024-01-23] MEDS: docusate sodium 100 mg Capsule PO ×2 (09:31→17:38)
[2024-01-23] MEDS: sennosides 8.6 mg Tablet 8.59999999999999964 MG PO (09:42)
[2024-01-23] MEDS: ibuprofen 800 mg tablet PO ×2 (09:42→17:38)
[2024-01-24] VITALS (7 sets, daily range): BP systolic 124–184; BP diastolic 70–91; PULSE 76–97; RESP 18
[2024-01-24] MEDS: ibuprofen 800 mg tablet PO ×2 (02:22→09:12)
[2024-01-24] MEDS: docusate sodium 100 mg Capsule PO (09:12)
[2024-01-24] MEDS: cetirizine 10 mg Tablet PO (09:12)
--- NOTE | 2024-01-24 12:00 | PM.OBGYDC ---
Discharge Providers [employer] Date of Admission: 01/22/24 13:00 Date of Discharge: 01/24/24 Attending Provider at Admission: Severiano Rouse MD Attending Provider at Discharge: Severiano Rouse MD Primary [employer]: Severiano Rouse MD Primary Care Provider: Ravin Olvera DO Diagnoses at Discharge Discharge Diagnosis (1) Status post total abdominal hysterectomy: Status: Acute Reason for Visit Reason for Visit: N81.10 Hospital Course Hospital Course Repeat 43-year-old female with a history of abnormal uterine bleeding unresponsive to medical management. Admitted for planned total vaginal hysterectomy however it was converted to abdominal hysterectomy due to body habitus. Mid urethral sling was not also possible due to body habitus. Postop observation has been uneventful. She is afebrile and hemodynamically stable. Tolerating diet well. Ambulating without difficulty. She was counseled regarding pelvic rest for 6 weeks (no sex, no tampons, no vaginal douches). Return to the emergency room if any fever, increased bleeding or pain. Physical Exam Narrative: GA: Alert and oriented ?3. HEENT: WNL. Heart: Regular rate and rhythm. Lungs: Clear to auscultation bilaterally. Abdomen: Bowel sounds present, nontender, minimal tenderness, incision clean and dry, no redness, pain or edema. OLERICULTURIST: No bleeding. Extremities: No edema, no cyanosis, no calves pain. Urinary Catheter Management: Omer: Cath Placed During This Visit: yes, but has since been removed by the nurse Reason for Continuing Indwelling Catheter: Decision to DC Catheter Urinary Catheter Date of Insertion: 01/22/24 Urinary Catheter Time of Insertion: 08:11 Date Urinary Catheter Removed: 01/23/24 Time Urinary Catheter Discontinued: 05:05 History History History 2 Term 2 0 Miscarriages/Ectopic 0 Living Children 2 Discharge Data Studies Completed and Pending Pending at discharge Category Date Time Status Pathology: Surgical [PTH] Routine Pth 01/22/24 10:50 Received Laboratory Results WBC 11.69 10^3/uL (3.29-11.43) H 01/23/24 05:20 RBC 3.90 10^6/uL (3.85-5.65) 01/23/24 05:20 Hgb 10.20 g/dL (11.27-16.99) L 01/23/24 05:20 Hct 31.1 % (36-47) L 01/23/24 05:20 MCV 79.7 fl (85-98) L 01/23/24 05:20 MCH 26.2 pg (27-33) L 01/23/24 05:20 MCHC 32.8 g/dL (30-55) 01/23/24 05:20 RDW 16.9 % (12.1-15.1) H 01/23/24 05:20 Plt Count 292 10^3/cmm (157-399) 01/23/24 05:20 MPV 10.1 fL (7.4-10.4) 01/23/24 05:20 Neut % (Auto) 66.3 % 01/21/24 08:00 Lymph % (Auto) 25.4 % 01/21/24 08:00 [place] % (Auto) 5.9 % 01/21/24 08:00 Eos % (Auto) 1.8 % 01/21/24 08:00 Baso % (Auto) 0.4 % 01/21/24 08:00 Neut # (Auto) 5.66 10^3/uL (1.8-7.7) 01/21/24 08:00 Lymph # (Auto) 2.2 10^3/uL (0.8-4.8) 01/21/24 08:00 [place] # (Auto) 0.5 10^3/uL (0.2-0.9) 01/21/24 08:00 Eos # (Auto) 0.2 10^3/uL (0.0-0.8) 01/21/24 08:00 Baso # (Auto) 0.0 10^3/uL (0.0-0.1) 01/21/24 08:00 Nucleated RBC % (auto) 0 % 01/21/24 08:00 Nucleated RBCs # 0.0 /100WBC 01/21/24 08:00 Sodium 136 mmol/L (136-145) 01/21/24 08:00 Potassium 3.8 mmol/L (3.5-5.1) 01/21/24 08:00 Chloride 102 mmol/L (98-107) 01/21/24 08:00 Carbon Dioxide 23 mmol/L (22-29) 01/21/24 08:00 Anion Gap 14.8 (5-19) 01/21/24 08:00 BUN 11 mg/dL (6-20) 01/21/24 08:00 Creatinine 0.5 mg/dL (0.5-0.9) 01/21/24 08:00 GFR Calculation 134.0 mL/min (90-130) H 01/21/24 08:00 Glucose 86 mg/dL (65-115) 01/21/24 08:00 Calculated Osmolality 281 mOsm/kg (285-295) L 01/21/24 08:00 Calcium 8.6 mg/dL (8.5-10.5) 01/21/24 08:00 Total Bilirubin 0.2 mg/dL (0.15-1.2) 01/21/24 08:00 AST 12 U/L (0-32) 01/21/24 08:00 ALT 11 U/L (0-33) 01/21/24 08:00 Alkaline Phosphatase 75 U/L (35-105) 01/21/24 08:00 Total Protein 6.6 g/dL (6.6-8.7) 01/21/24 08:00 Albumin 3.6 g/dL (3.5-5.2) 01/21/24 08:00 Globulin 3.0 g/dL (1.3-4.6) 01/21/24 08:00 Urine Color Yellow (Yellow) 01/21/24 07:45 Urine Appearance Clear (CLEAR) 01/21/24 07:45 Urine pH 5 (5-7) 01/21/24 07:45 Ur Specific [place] 1.020 (1.005-1.030) 01/21/24 07:45 Urine Protein Neg (Negative) 01/21/24 07:45 Urine Glucose (UA) Norm (Normal) 01/21/24 07:45 Urine Ketones Negative (Negative) 01/21/24 07:45 Urine Blood Neg (Negative) 01/21/24 07:45 Urine Nitrate Negative (Negative) 01/21/24 07:45 Urine Bilirubin Neg (Negative) 01/21/24 07:45 Urine Urobilinogen Norm mg/dL (Negative) 01/21/24 07:45 Ur Leukocyte Esterase 2+ (Negative) H 01/21/24 07:45 Urine RBC None /hpf (0-2) 01/21/24 07:45 Urine WBC 15-25 /hpf (0-5) H 01/21/24 07:45 Ur Squamous Epith Cells 15-25 /hpf (0-5) H 01/21/24 07:45 Amorphous Sediment Not Reportable 01/21/24 07:45 Urine Bacteria 1+ /hpf (NONE) H 01/21/24 07:45 Urine HCG, Qual Negative (Negative) 01/21/24 07:45 Blood Type O Positive 01/21/24 08:00 Rho(D) Type Rh positive 01/21/24 08:00 Antibody Screen Negative 01/21/24 08:00 Vitals Last Vital Signs Temp 97.5 F L 01/23/24 16:45 Pulse 88 01/24/24 08:14 Resp 17 01/23/24 16:45 BP 136/70 01/24/24 08:14 Pulse Ox 97 01/23/24 16:45 O2 Del Method Room Air 01/23/24 16:45 O2 Flow Rate 6 01/22/24 12:50 Results Labs OB ([facility]): Blood Type O Positive 01/21/24 Antibody Screen Negative 01/21/24 Hct 31.1 % (36-47) L 01/23/24 Hgb 10.20 g/dL (11.27-16.99) L 01/23/24 Rho(D) Type Rh positive 01/21/24 Plt Count 292 10^3/cmm (157-399) 01/23/24 TSH 1.23 uIU/mL (0.27-4.20) 01/19/23 FSH 6.2 mIU/mL 01/19/23 Ser , Semi-Qnt 1.00 mIU/mL 01/19/23 Pap Smear Interpret See note 02/24/22 Discharge Plan Discharge Patient Disposition: Home Condition: Stable Prescriptions: New hydrocodone-acetaminophen 5-325 mg tablet 1 tab PO Q4H PRN (Reason: pain) Qty: 20 0RF acetaminophen 325 mg capsule 325 mg PO Q4H PRN (Reason: fever or postoperative pain) Qty: 60 0RF ferrous sulfate [Iron (ferrous sulfate)] 325 mg (65 mg iron) tablet 325 mg PO BID Qty: 60 0RF docusate sodium [Colace] 100 mg capsule 100 mg PO BID Qty: 60 0RF ibuprofen 800 mg tablet 800 mg PO TID PRN (Reason: pain) Qty: 60 0RF Continued oxybutynin chloride 5 mg tablet extended release 24hr 5 mg PO DAILY Qty: 30 3RF norgestimate-ethinyl estradiol [Sprintec (28)] 0.25-35 mg-mcg tablet 1 tab PO DAILY Qty: 84 0RF senna 8.6 mg Tablet 8.6 mg PO DAILY Zyrtec 10 mg Capsule 10 mg PO DAILY Discharge Orders: Discharge Order (Routine); Ordered 01/24/24 Ordered By: Severiano Rouse Referrals: Severiano Rouse MD [Physician] - (February AT [address] ROUSE MARCH 03 2024 AT 2:45PM WITH DR. ROUSE) Discharge Diet: Usual diet Discharge Activity: Limit activity as instructed Patient Instructions: Hysterectomy (GEN), Opioid Safety Activity Restrictions/Additional Instructions: 1. Please call [facility] on next working day to make your post-operative appointment in 2 weeks. 2. Please stay home until you come back to the clinic on first post-hospatilization check up. 3. Please follow instructions on your medications CAREFULLY. 4. If you have abdominal incision, do not cover it unless dressing is necessary because of drainage. OK to shower, but avoid bath. Leave steri-strips until they fall off. If they are still on one week after surgery, you may remove them. 5. If you had vaginal surgery or vaginal repair, Dr. Rouse may instruct you to take SITZ bath. 6. Yellow, blood tinged odorous vaginal discharge is usually normal after hysterectomy or vaginal surgeries. 7. No SEXUAL INTERCOURSE, tampons, or douches until you are completely released from the post-operative care. 8. Avoid constipation by eating right and maybe using some Metamucil or Milk of Magnesia. 9. All prescription refills are given during the working hours. Please do no wait till it runs out. Call the clinic at [phone] before your medication runs out. The clinic will get in touch with your doctor to prescribe medications if necessary. 10. Please remain within 40 mile radius from our hospital because emergencies do happen now and then during the post-operative period. 11. If you have stairs at home, take one step at a time slowly and minimize the number of trips. It helps to stay in one floor for the next few days. No lifting except what you can lift by one hand until you are released from the post-operative care. 12. Driving is discouraged until you are well healed. It may be 3-4 weeks before you feel strong enough to drive. You should be able to turn and look through the rear window without pain and you should be able to push the brake pedal very hard without pain before you drive. No fast rules, but SAFETY should be your primary concern. DO NOT drive if you are on sedating medications such as narcotics. 13. Call the clinic (during working hours) to make urgent appointment or go to the Emergency room, if any of the following occurs: i. Vaginal bleeding becomes heavy, more than a period. ii. Incision becomes red and sore, or drains pus. iii. Your TEMPERATURE is over 100.4F or you have chill. iv. IV site becomes red and swollen (a little ``knot?? is usually OK) v. Persistent nausea and vomiting vi. Persistent constipation or diarrhea vii. Rash or allergic reaction to medications. Discharge Attestations [employer] Time Spent in Discharge Care*: greater than 30 min Coding Level of Care Code Acute Code for Chg Fwd Diagnoses Status post total abdominal hysterectomy Z90.710
== END 2024-01-24 13:10 | disposition home or self-care (01) | DRG 742 ==
LOC: OBGYN 14:17
PROVIDERS: Admitting Provider Obstetrics & Gynecology; PCP Electrodiagnostic Medicine; Visit Provider Obstetrics & Gynecology
PROC: 0UT90ZZ Resection of Uterus, Open Approach (ICD-10-PCS; CPT 58150; 2024-01-22 07:00)
DX: D25.2 Subserosal leiomyoma of uterus (principal); Z68.43 Body mass index [BMI] 50.0-59.9, adult; E66.01 Morbid (severe) obesity due to excess calories; N39.46 Mixed incontinence; N81.10 Cystocele, unspecified
CPT/HCPCS: 36415; 80053; 81001; 81025; 84703; 85025; 85027; 86850; 86900; 88307; C9290; J0690; J1100; J1170; J1200; J1885; J2250; J2405; J2704; J3010; J3490; J7030; J7040; J7121

== ENCOUNTER 2024-03-17 20:00 | Outpatient (CLI) | payer OTHER, SELFPAY | END 2024-03-17 20:01 | disposition home or self-care (01) | LOC: SLEEP 03-18 05:05 | PROVIDERS: PCP Electrodiagnostic Medicine; Visit Provider Electrodiagnostic Medicine | DX: G47.10 Hypersomnia, unspecified (principal); G47.33 Obstructive sleep apnea (adult) (pediatric); G47.36 Sleep related hypoventilation in conditions classified elsewhere | CPT/HCPCS: 95810 ==

== ENCOUNTER 2024-07-15 10:51 | Outpatient (CLI) | payer OTHER, SELFPAY ==
--- NOTE | 2024-07-15 10:52 | MM_ITS ---
WS: [id number] BILATERAL 3D TOMOSYNTHESIS DIGITAL SCREENING MAMMOGRAPHY WITH CAD CLINICAL INFORMATION: SCREENING HISTORY: Screening mammogram. No current complaints. COMPARISON: 2022 TECHNIQUE: Bilateral CC and MLO views. FINDINGS: Scattered fibroglandular densities bilaterally. No suspicious focal mass, asymmetry, calcifications, or architectural distortion. No evidence of malignancy. MM/[place] [id number] IMPRESSION: DENSITY: There are scattered areas of fibroglandular density. BI-RADS: 1 - Negative. FOLLOW UP: 1 Year Follow-up Recommend return to annual screening mammography.
== END 2024-07-15 10:52 | disposition home or self-care (01) ==
LOC: RAD 10:51
PROVIDERS: PCP Electrodiagnostic Medicine; Visit Provider Nurse Practitioner Women's Health
DX: Z12.31 Encounter for screening mammogram for malignant neoplasm of breast (principal); R92.323 Mammographic fibroglandular density, bilateral breasts
CPT/HCPCS: 77063; 77067

== ENCOUNTER → 2024-09-24 07:56 | Outpatient (BNVA) | payer OTHER, SELFPAY | PROVIDERS: PCP Electrodiagnostic Medicine; Visit Provider Podiatrist Foot & Ankle Surgery | DX: M79.672 Pain in left foot (principal); M21.42 Flat foot [pes planus] (acquired), left foot; M76.822 Posterior tibial tendinitis, left leg | CPT/HCPCS: 73630 ==

== ENCOUNTER → 2024-09-30 09:42 | Outpatient (BNVA) | payer OTHER, SELFPAY | PROVIDERS: PCP Electrodiagnostic Medicine; Visit Provider Student in an Organized Health Care Education/Training Program | DX: M17.12 Unilateral primary osteoarthritis, left knee | CPT/HCPCS: 73560; 73565 ==

== ENCOUNTER 2024-10-23 11:20 | Outpatient (RCR) | payer OTHER, SELFPAY | END 2024-11-04 23:59 | disposition home or self-care (01) | LOC: SPT 11:20 | PROVIDERS: PCP Electrodiagnostic Medicine; Visit Provider Podiatrist Foot & Ankle Surgery | DX: M79.672 Pain in left foot (principal) | CPT/HCPCS: 97110; 97140; 97161 ==

== ENCOUNTER 2024-11-05 06:00 | Outpatient (RCR) | payer OTHER, SELFPAY | END 2024-12-05 23:59 | disposition home or self-care (01) | LOC: SPT 06:00 | PROVIDERS: PCP Electrodiagnostic Medicine; Visit Provider Podiatrist Foot & Ankle Surgery | DX: M79.672 Pain in left foot (principal) | CPT/HCPCS: 97110; 97140 ==

== ENCOUNTER 2025-07-30 07:40 | Outpatient (CLI) | payer OTHER, SELFPAY ==
--- NOTE | 2025-07-30 08:00 | MM_ITS ---
WS: [id number] BILATERAL SCREENING DIGITAL TOMOSYNTHESIS MAMMOGRAM WITH CAD HISTORY: Z12.31 - Encounter for screening mammogram for malignant ... COMPARISON: 07/15/2024, 06/28/2023, 05/02/2021, 04/20/2021 Bilateral CC and MLO views with tomosynthesis and synthetic mammography submitted. Computer aided detection analyzed. Breast composition: There are scattered areas of fibroglandular density. No suspicious masses, microcalcifications or architectural distortion. Asymmetry in the central posterior LEFT breast is stable. No new areas of distortion. No clusters of calcifications. MM/MM scr BI tomosynthesis [id number] IMPRESSION: BI-RADS: 2 - Benign. FOLLOW UP: 1 Year Follow-up
== END 2025-07-30 07:41 | disposition home or self-care (01) ==
LOC: RAD 07:41
PROVIDERS: PCP Electrodiagnostic Medicine; Visit Provider Nurse Practitioner Women's Health
DX: Z12.31 Encounter for screening mammogram for malignant neoplasm of breast (principal)
CPT/HCPCS: 77063; 77067